=== PATIENT | female | born 1990 | race Caucasian/White ===

== ENCOUNTER 2024-12-01 12:50 | Emergency (ER) | payer OTHER, SELFPAY ==
[2024-12-01 12:58] VITALS: BP 132/74; PULSE 62; RESP 16; TEMP 36.8; O2SAT 97; BMI 25.8
[2024-12-01 13:02] VITALS: BP 132/74; PULSE 62; RESP 16; TEMP 36.8; O2SAT 97
--- NOTE | 2024-12-01 13:23 | ED.GENADULT ---
HPI - General Adult General Chief complaint: General Medical Stated complaint: PICC LINE ISSUES Time Seen by Provider: 12/01/24 13:07 Source: patient, EMS, RN notes reviewed, old records reviewed and other ([facility] records) Mode of arrival: EMS Limitations: no limitations History of Present Illness ED Provider: Awilda HPI narrative: Patient is a 34-year-old female with history of polysubstance use disorder (heroin, cocaine, tobacco, marijuana), chronic hepatitis C, chronic TV endocarditis, TBI, depression, panic disorder without agoraphobia presenting to the emergency department via EMS from the court house requesting that her PICC line be removed from her left upper arm. PICC line was placed at [facility] on 11/27/2024 as it was believed patient would be incarcerated for a longer period and was to receive IV daptomycin via the PICC line for bacteremia and suspected endocarditis. Patient stating that she was released at court hearing today and was told it [facility] that she could take oral antibiotics if she was not going to continue to be incarcerated. She is demanding that the PICC line be removed and is not interested in continuing with IV antibiotics. She also states that prior to her incarceration she was actively injecting IV drugs. complaint: PICC line removal Related Data Previous Rx's ?Medication ?Instructions ?Recorded cephalexin 500 mg capsule 1,000 mg (2 x 500 mg) PO QID 34 12/01/24 days #272 caps Allergies Allergy/AdvReac Type Severity Reaction Status Date / Time No Known Allergies (No Known Allergy Verified 12/01/24 13:02 Allergies*) Review of Systems Review of Systems: as per HPI Yes all other systems are reviewed and are negative Constitutional: Constitutional: Reports as per HPI [facility] Social History Social History Smoked in Last 30 Days: Yes Advance Directives: No Advance Directives Information Provided: No Do you have a plan to hurt others: No Plan Patient : No Physical Exam ED Vital Signs: Vital Signs - 24 hr 12/01/24 12:58 12/01/24 13:02 12/01/24 13:25 Temperature 98.2 F 98.2 F 98.2 F Pulse Rate 62 62 62 Respiratory Rate 16 16 16 Blood Pressure 132/74 132/74 132/74 Pulse Oximetry 97 97 97 Oxygen Delivery Method Room Air Room Air Room Air BMI result Body Mass Index 25.8 Vital signs have been reviewed and appear to be correct. Blood pressure normal. Heart rate normal. Respiratory rate normal. Temperature normal. Oxygen saturation normal. Const General: cooperative, healthy appearing and no acute distress Orientation/consciousness: oriented to person, oriented to place, oriented to time and patient oriented x3 Limitations: no limitations HENMT Head: Yes normocephalic and Yes atraumatic Ears: external ears normal General nose exam: Normal external nose present Face and sinus: Yes face symmetric Mouth: oropharynx normal and moist mucous membranes Throat: Yes uvula midline Eyes Pupils: Equal, round and reactive pupils present Neck Neck: Yes normal visual inspection and Yes supple Resp Effort & Inspection: normal respiratory effort and able to speak in complete sentences Auscultation: clear to auscultation bilaterally Cardio Rate: regular rate Rhythm: regular rhythm Heart sounds: S1 normal heart sound present and S2 normal heart sound present GI Palpation (GI): Soft to palpation and nontender Auscultation: normoactive bowel sounds General: Yes no CVA tenderness Back/Spine/Pelvis Back: no CVA tenderness Skin General skin exam: elasticity normal and turgor normal Neuro General: oriented to person, oriented to place, oriented to time, patient oriented x3, moves all extremities, no focal motor deficits and CN's II-XI intact bilaterally Cranial nerves: Yes Equal, round and reactive pupils present Cognition (Neuro): normal cognition Extrem Other: Diffuse healed scars to bilateral upper extremities, PICC line to medial left upper arm General: Yes full ROM, Yes no pedal edema and Yes no calf tenderness Psych Mental Status: mental status grossly normal Affect: normal affect Thought process: Normal thought process present Course Course Course Narrative: patient seen with [facility] - discussed risks and that taking PICC out and switching to oral at this time likely to cause issue. Mom present patient refuses to keep it in. JORDAN Medications Administered Discontinued Medications Generic Name Dose Route Start Last Admin Trade Name Freq PRN Reason Stop Dose Admin Bacitracin 1 appl 12/01/24 13:18 12/01/24 13:23 Bacitracin Oint 0.9 Gm Packet TOPICAL 12/01/24 13:19 1 appl ONCE ONE Administration Protocol Medical Decision Making Medical Decision Making MDM Narrative: Patient is a 34-year-old female with history of polysubstance use disorder (heroin, cocaine, tobacco, marijuana), chronic hepatitis C, chronic TV endocarditis, TBI, depression, panic disorder without agoraphobia presenting to the emergency department via EMS from the court house requesting that her PICC line be removed from her left upper arm. On exam patient is awake, A+Ox3, VS WNL, afebrile, normal neurological exam without focal deficits, physical exam findings as above. Given reported symptoms and physical exam findings, initial differential includes but is not limited to PICC line removal. Upon review of EMR from [facility], PICC line was placed on 11/27 as it was believed patient would be incarcerated and able to receive IV daptomycin for bacteremia and suspected endocarditis. Patient was released at court hearing today and is requesting that PICC line be removed. States she was told that [facility] that she could take oral antibiotics. Discharge note from Dr. Karol Hunt notes that if patient is released, she can have the PICC line removed and be treated with cephalexin 1 g q.i.d. times 4-6 weeks. Risks of removing PICC line and progressive worsening discussed with patient at bedside including chest pain, dyspnea, lower extremity edema, fever and patient advised to present to any area emergency department if these symptoms occur. Attempted to discuss with the patient that other options for IV treatment could be arranged, patient states she is not willing to participate in this and wants her PICC line removed. PICC line removed in the ED and dressing applied without complication. Prescription for cephalexin sent to the pharmacy. Patient seen and evaluated with attending, Dr. Osorio. Patient verbalized understanding of and agreement with plan. Differential Diagnosis Differential Diagnoses: The differential diagnosis associated with the presentation includes As per [facility] Admission/Observation Consideration of admission/observation: Escalation of care including admission/observation considered Patient would have been admitted to the hospital had their clinical presentation warranted hospital admission. External Record Review External record reviewed: Inpatient record, Office record and Outpatient record Prescription Management I considered prescription management with: Antibiotic Discharge Plan Discharge Clinical Impression: MSSA bacteremia, Endocarditis Patient Disposition: Home, Self-Care Instructions: Bacteremia (ED) Additional Instructions: it is not recommended you remove your PICC line given you just were diagnosed and need longer term IV antibiotics we offered to help you continue your infusions you refused you are putting yourself at risk of worsening infection, sepsis, infective clots to your lungs, brain, kidney. You could damage your valve worse and end up with congestive heart failure or a need for valve surgery. you can return at any time, please call your doctor at [facility] as soon as possible. On a cephalosporin?antibiotic, softer bowel movements are to be expected. Call your provider if you move your bowels more than 4 times a day, your bowel movements are almost all liquid, or you get a rash.?? Prescriptions: New cephalexin 500 mg capsule 1,000 mg PO QID 34 Days Qty: 272 0RF Interventions: ED Discharge Assessment Last Done: 12/01/24 13:25 Discharge Date/Time: 12/01/24 13:48 Print Language: Congolese
--- NOTE | 2024-12-01 13:24 | PC.NURSE ---
Assisting nurse removed picc line from left arm. End of picc line intact. Pressure applied until bleeding ceased. Dressing placed over area. Patient up for discharge
[2024-12-01 13:25] VITALS: BP 132/74; PULSE 62; RESP 16; TEMP 36.8; O2SAT 97
--- OUTSIDE RECORDS SUMMARY | 2024-12-01 13:41 | XMS_ITS | Clinical Summary ---
Author Organization [employer] Address [address] [place] [address] [address] [place] [address] Care Team Providers Care Vibrator Equipment Tester Name Role Phone Unavailable Primary Care Provider Unavailabl e Immunizations Immunization Administration Dates Next Due Moderna Covid-19 Vaccine 6+ Bivalent 04/15/2022 Social History Tobacco Use Types Packs/Day Years Used Date Smoking Tobacco: Never Assessed Comments Unknown Sex and Gender Information Value Date Recorded Sex Assigned at Female 02/23/2022 10:35 AM EDT Legal Sex Female 10:35 AM EDT Gender Identity Female 02/23/2022 10:35 AM EDT Sexual Orientation Straight 02/23/2022 10 :35 AM EDT Plan of Treatment Health Maintenance Due Date Last Done Comments Depression Screening 1990 HIV Screening 1990 SDOH Screening 1990 Disability Screening 1990 Alcohol/Substance Use Screening 2002 Tobacco Screening 2002 Family Planning (PISQ) 2005 HPV Vaccines (1 - 3-dose series) 2005 Hepatitis A Vaccines (1 of 2 - Risk 2-dose series) 2009 Hepatitis B Vaccines (1 of 3 - 19+ 3-dose series) 2009 Pap Smear 2011 Cervical Cancer Screening 2020 HPV/Cotest 2020 COVID-19 Vaccine (3 - 2023-2 5 season) 2023 04/15/2022, 10/02/2020 Influenza Vaccine (#1) 2024 05/10/2010 DTaP/Tdap/Td Vaccines (2 - T d or Tdap) 10/20/2025 10/21/2015 Zoster Vaccines (1 of 2) 2040 RSV Patients and Patients Aged 60 years or older (1 - 1-dose 75+ series) 2065 HIB Vaccines Aged Out No longer eligi ble based on patient's age to complete this topic IPV Vaccines Aged Out No longer eligi ble based on patient's age to complete this topic Meningococcal B Vaccine Aged Out No l onger eligible based on patient's age to complete this topic Meningococcal Vaccine Aged Out No chidi evelio eligible based on patient's age to complete this topic Pneumococcal Vaccine: Pediatrics (0 to 5 Years) and At-Risk Patients (6 to 49) Years Aged Out No longer eligible b ased on patient's age to complete this topic RSV under 20 months Aged Out No longe r eligible based on patient's age to complete this topic Rotavirus Vaccines Aged Out No longer eligible based on patient's age to complete this topic Insurance [facility] STANDARD MEDICARE
--- OUTSIDE RECORDS SUMMARY | 2024-12-01 13:41 | XMS_ITS | Clinical Summary ---
Author Organization [facility] Facility Address [address] [place] [address] Care Team Providers Care Rn Occupational Name Role Phone Unavailable Primary Care Provider Unavailabl e Social History Tobacco Use Types Packs/Day Years Used Date Smoking Tobacco: Never Assessed Comments Unknown Sex and Gender Information Value Date Recorded Sex Assigned at Not on file Legal Sex Female 9:54 AM EDT Gender Identity Not on file Sexual Orientation Not on file Plan of Treatment Health Maintenance Due Date Last Done Comments Hepatitis B Vaccine (1 of 3 - 19+ 3-dose series) 2009 Influenza Vaccine (#1) 2024 Pneumococcal Vaccine: Peds ( 0 to 5 Years) and At-Risk Patients (6 to 49 Years) Aged Out No longer eligible b ased on patient's age to complete this topic Insurance [place]
--- OUTSIDE RECORDS SUMMARY | 2024-12-01 13:42 | XMS_ITS | Clinical Summary ---
Author Organization [facility] Address [address] [place] [address] Phone Care Team Providers Care Textiles Printer Name Role Phone Physician, Pcp Unknown Primary Care Provider Erin vailable Allergies No known active allergies Medications OLANZapine (ZyPREXA) 5 mg tablet Take 1 tablet (5 mg total) by mouth. at bedtime 5 Active topiramate (TOPAMAX) 50 mg tablet Take 1 tablet (50 mg total) by mouth. at bedtime 5 Active nicotine (NICODERM CQ) 21 mg/24 hr 4 Active amoxicillin (AMOXIL) 500 mg tablet TAKE 1 TABLET BY MOUTH EVERY 8 HOURS UNTIL ALL TAKEN 5 Active buprenorphine-n aloxone (SUBOXONE) 8-2 mg per SL film PLACE FILM UNDER TONGUE THREE TIMES DAILY 5 Active busPIRone (BUSPAR) 10 mg tablet Take 1 tablet (10 mg total) by mouth 3 (three) times a day if needed. 4 Active chlorhexidine (PERIDEX) 0.12 % solution SWISH 15 ML BY MOUTH FOR 30 SECONDS THEN SPIT OUT. USE AFTER BREAKFAST AND BEFORE BEDTIME 5 Active cloNIDine (CATAPRES) 0.1 mg tablet Take 1 tablet (0.1 mg total) by mouth 3 (three) times a day if needed. 4 Active gabapentin (NEURONTIN) 300 mg capsule Take 1 capsule (300 mg total) by mouth. 2 Active methadone (DOLOPHINE) 10 mg tablet Take 11 tablets (110 mg total) by mouth. 2 Active methocarbamoL (ROBAXIN) 750 mg tablet Take 1 tablet (750 mg total) by mouth. Active doxycycline (VIBRAMYCIN) 100 mg capsule Take 1 capsule (100 mg total) by mouth 2 (two) times a day for 7 days. Take with at least 8 ounces (large glass) of water, do not lie down for 30 minutes after 14 each 5 11/12/19 25 Active Problems Problem Noted Date Diagnosed Date Open wound of right upper extremity 01/06/2019 Status post split thickness skin graft 9 Encounters Date Type Department Care Team Description 11/04/2024 3:40 AM EDT - 11/04/2024 7:17 AM EDT Emergency [facility] Emergency [address] [place] [address] Casey Joe MD Cellulitis of upper extremity, unspecified laterality (Primary Dx) Discharge Disposition: Home or Self Care from Last 3 Months Surgical History Surgery Date Site/Laterality Comments OTHER SURGICAL HISTORY PROCEDURE: SKIN GRAFT <100SQCM; COMMENT: 2019 Medical History Medical History Date Comments Drug abuse ([facility] V24, [facility] V28) 2021 Family History Relation Name Status Comments Father Alive Mother Alive Social History Tobacco Use Types Packs/Day Years Used Date Smoking Tobacco: Every Day Smokeless Tobacco: Current Alcohol Use Standard Drinks/Week Comments No 0 (1 standard drink = 0.6 oz pur e alcohol) Comments Unknown Sex and Gender Information Value Date Recorded Sex Assigned at Not on file Legal Sex Female 4:05 AM EST Gender Identity Not on file Sexual Orientation Not on file Obstetrics History Last Filed Vital Signs Vital Sign Reading Time Taken Comments Blood Pressure 105/66 11/04/2024 3:01 AM EDT Pulse 72 11/04/2024 3:01 AM EDT Temperature 36.7 C (98 F) 11/04/2024 3:01 AM EDT Respiratory Rate 16 11/04/2024 3:01 AM EDT Oxygen Saturation 99% 11/04/2024 3:01 AM EDT Inhaled Oxygen Concentration - - Weight 72.6 kg (160 lb) 11/03/2024 9:33 PM EDT Height 160 cm (5' 3 ) 11/03/2024 9:33 PM EDT Body Mass Index 28.34 11/03/2024 9:33 PM EDT Plan of Treatment Health Maintenance Due Date Last Done Comments Hepatitis A Vaccines (1 of 2 - Risk 2-dose series) 2009 Hepatitis B Vaccines (1 of 3 - 19+ 3-dose series) 2009 Pneumococcal Vaccine: Pediatrics (0 to 5 Years) and At-Risk Patients (6 to 49 Years) (1 of 2 - PCV) 2009 Cervical Cancer Screening: P ap Smear 2011 Cholesterol Screening (Lipid Panel) 03/29/2022 HIV Screening 03/29/2022 Hepatitis C Screening 03/29/2022 Medicare Annual Wellness Visit 03/29/2022 Social Influencers of Health Screening 03/29/2022 COVID-19 Vaccine (3 - 2023-2 5 season) 2023 04/15/2022, 10/02/2020 Depression Screening 04/26/2024 Influenza Vaccine (#1) 2024 05/10/2010 DTaP,Tdap,and Td Vaccines (3 - Td or Tdap) 01/09/2029 01/09/2019, 10/21/2015 HIB Vaccines Aged Out No longer eligi ble based on patient's age to complete this topic HPV Vaccines Aged Out No longer eligi ble based on patient's age to complete this topic IPV Vaccines Aged Out No longer eligi ble based on patient's age to complete this topic MMR Vaccines Aged Out No longer eligi ble based on patient's age to complete this topic Meningococcal ACWY Vaccine Aged Out N o longer eligible based on patient's age to complete this topic Meningococcal B Vaccine Aged Out No l onger eligible based on patient's age to complete this topic RSV Immunization Patients Under 20 months Aged Out No longer eligible b ased on patient's age to complete this topic Varicella Vaccines Aged Out No longer eligible based on patient's age to complete this topic Procedures Procedure Name Priority Date/Time Associated Diagnosis Comments CBC WITH AUTO DIFFERENTIAL STAT 11/04/2024 5:13 AM EDT MAGNESIUM STAT 11/04/2024 5:13 AM EDT LACTATE, WITH REFLEX STAT 11/04/2024 5:13 AM EDT COMPREHENSIVE METABOLIC PANEL STAT 11/04/2024 5:13 AM EDT CBC AND DIFFERENTIAL STAT 11/04/2024 5:13 AM EDT CULTURE BLOOD STAT 11/04/2024 5:13 AM EDT from Last 3 Months Results * Lactate, with reflex (11/04/2024 5:13 AM EDT) [facility] LACTIC ACID 0.9 0.4 - 2.0 mmol/L LAB CHEMISTRY METHOD 11/04/2024 5:52 AM EDT [facility] Blood Venous blood specimen / Unknown Venipuncture / Unknown 11/04/2024 5:13 AM EDT 11/04/2024 5:18 AM EDT Russ Weiss MD LAB BLOOD ORDERABLES Final Result [facility] [address] [place] [address], * (ABNORMAL) CBC auto differential (11/04/2024 5:13 AM EDT) [facility] WBC 10.6 4.8 - 10.8 K/mcL LAB HEMETOLOGY METHOD 11/04/2024 5:23 AM EDT [facility] RBC 4.90(H) 3.80 - 4.80 M/mcL LAB HEMETOLOGY METHOD 11/04/2024 5:23 AM EDT [facility] Hemoglobin 14.6 11.5 - 16.0 g/dL LAB HEMETOLOGY METHOD 11/04/2024 5:23 AM EDT [facility] Hematocrit 45.1 35.0 - 47.0 % LAB HEMETOLOGY METHOD 11/04/2024 5:23 AM EDT [facility] MCV 92.0 79.0 - 98.0 FL LAB HEMETOLOGY METHOD 11/04/2024 5:23 AM T [facility] MCH 29.8 27.0 - 32.0 pcg LAB HEMETOLOGY METHOD 11/04/2024 5:23 AM [facility] MCHC 32.4 32.0 - 37.0 g/dL LAB HEMETOLOGY METHOD 11/04/2024 5:23 AM [facility] RDW 12.4 11.0 - 15.0 % LAB HEMETOLOGY METHOD 11/04/2024 5:23 AM [facility] Platelets 279 130 - 400 K/mcL LAB HEMETOLOGY METHOD 11/04/2024 5:23 AM [facility] MPV 8.9 7.0 - 11.0 FL LAB HEMETOLOGY METHOD 11/04/2024 5:23 AM [facility] NRBC 0.0 <1.0 % LAB HEMETOLOGY METHOD 11/04/2024 5:23 AM [facility] NRBC Absolute 0.00 <0.10 K/mcL LAB HEMETOLOGY METHOD 11/04/2024 5:23 AM [facility] Neutrophils Relative 61.2 % LAB HEMETOLOGY METHOD 11/04/2024 5:23 AM [facility] Lymphocytes Relative 30.7 % LAB HEMETOLOGY METHOD 11/04/2024 5:23 AM [facility] Monocytes Relative 5.8 % LAB HEMETOLOGY METHOD 11/04/2024 5:23 AM [facility] Eosinophils Relative 1.2 % LAB HEMETOLOGY METHOD 11/04/2024 5:23 AM [facility] Basophils Relative 0.6 % LAB HEMETOLOGY METHOD 11/04/2024 5:23 AM [facility] Immature Granulocytes Relative 0.5 % LAB HEMETOLOGY METHOD 11/04/2024 5:23 AM EDT [facility] Neutrophils Absolute 6.48 1.50 - 7.00 K/[facility] LAB HEMETOLOGY METHOD 11/04/2024 5:23 AM EDT [facility] Lymphocytes Absolute 3.25 1.00 - 5.00 K/[facility] LAB HEMETOLOGY METHOD 11/04/2024 5:23 AM EDT [facility] Monocytes Absolute 0.61 0.20 - 1.00 K/[facility] LAB HEMETOLOGY METHOD 11/04/2024 5:23 AM EDT [facility] Eosinophils Absolute 0.13 0.00 - 0.50 K/[facility] LAB HEMETOLOGY METHOD 11/04/2024 5:23 AM EDT [facility] Basophils Absolute 0.06 0.00 - 0.20 K/mcL LAB HEMETOLOGY METHOD 11/04/2024 5:23 AM EDT [facility] Immature Granulocytes Absolute 0.05(H) 0.00 - 0.03 K/mcL LAB HEMETOLOGY METHOD 11/04/2024 5:23 AM EDT [facility] Blood Venous blood specimen / Unknown Venipuncture / Unknown 11/04/2024 5:13 AM EDT 11/04/2024 5:19 AM EDT us Russ Weiss MD LAB BLOOD ORDERABLES Final Result [facility] [address] [place] [address], * Blood culture (11/04/2024 5:13 AM EDT) Culture, Blood No growth at 5 days 11/09/2024 6:01 AM EDT [facility] Blood Venous blood specimen / Unknown Venipuncture / Unknown 11/04/2024 5:13 AM EDT 11/04/2024 5:19 AM EDT Russ Weiss MD LAB MICROBIOLOGY - GENERAL ORDERABLES Final Result Performing Organization Address [facility]/ZIP Co de Phone Number [facility] [address] [place] [address], [place] [phone] * Magnesium (11/04/2024 5:13 AM EDT) Pathologist [facility] Magnesium 2.2 1.9 - 2.6 mg/dL LAB CHEMISTRY METHOD 11/04/2024 6:01 AM EDT [facility] Blood Venous blood specimen / Unknown Venipuncture / Unknown 11/04/2024 5:13 AM EDT 11/04/2024 5:19 AM EDT Russ Weiss MD LAB BLOOD ORDERABLES Final Result Performing Organization Address [facility]/ZIP Co de Phone Number [facility] [address] [place] [address], [place] [phone] * (ABNORMAL) Comprehensive metabolic panel (11/04/2024 5:13 AM EDT) [facility] Sodium 138 133 - 145 mmol/L LAB CHEMISTRY METHOD 11/04/2024 6:01 AM T [facility] Potassium 4.2 3.5 - 5.5 mmol/L LAB CHEMISTRY METHOD 11/04/2024 6:01 AM EDT [facility] Chloride 101 96 - 110 mmol/L LAB CHEMISTRY METHOD 11/04/2024 6:01 AM EDT [facility] CO2 31 21 - 32 mmol/L LAB CHEMISTRY METHOD 11/04/2024 6:01 AM EDT [facility] Anion Gap 6 3 - 11 LAB CHEMISTRY METHOD 11/04/2024 6:01 AM EDT [facility] Glucose 99 70 - 100 mg/dL LAB CHEMISTRY METHOD 11/04/2024 6:01 AM [facility] BUN 15 5 - 25 mg/dL LAB CHEMISTRY METHOD 11/04/2024 6:01 AM [facility] Creatinine 0.53 0.50 - 1.10 mg/dL LAB CHEMISTRY METHOD 11/04/2024 6:01 AM [facility] eGFR 125 >=60 mL/min/1. 73m2 LAB CHEMISTRY METHOD 11/04/2024 6:01 AM [facility] Comment:Calculation based on the Chronic Kidney Disease Epidemiology Collaboration (CKD-EPI) equation refit without adjustment for race. BUN/Creatinine Ratio 28.3 LAB CHEMISTRY METHOD 11/04/2024 6:01 AM [facility] Calcium 9.3 8.5 - 10.5 mg/dL LAB CHEMISTRY METHOD 11/04/2024 6:01 AM [facility] AST (SGOT) 56(H) 10 - 42 unit/L LAB CHEMISTRY METHOD 11/04/2024 6:01 AM [facility] ALT (SGPT) 93(H) 10 - 60 unit/L LAB CHEMISTRY METHOD 11/04/2024 6:01 AM [facility] Alkaline Phosphatase 188(H) 42 - 121 unit/L LAB CHEMISTRY METHOD 11/04/2024 6:01 AM [facility] Total Protein 8.0 6.0 - 8.0 g/dL LAB CHEMISTRY METHOD 11/04/2024 6:01 AM [facility] Albumin 3.4 3.2 - 5.0 g/dL LAB CHEMISTRY METHOD 11/04/2024 6:01 AM [facility] Total Bilirubin 0.4 0.0 - 1.4 mg/dL LAB CHEMISTRY METHOD 11/04/2024 6:01 AM [facility] Blood Venous blood specimen / Unknown Venipuncture / Unknown 11/04/2024 5:13 AM EDT 11/04/2024 5:19 AM EDT us Russ Weiss MD LAB BLOOD ORDERABLES Final Result [facility] [address] [place] [address], [place] [phone] from Last 3 Months Insurance MEDICARE MEDICAID - [place] [facility] PL[facility] Advance Directives Documents on File Type Date Recorded Patient Building Contractor Expl anation Health Care Decision (hx) 09/24/2021 AD GROSS DIRECTIVE Health Care Decision (hx) 09/24/2021 AD GROSS DIRECTIVE Health Care Decision (hx) 09/24/2021 AD GROSS DIRECTIVE Care Teams Textiles Printer Relationship Specialty Start Date End Date Physician, Pcp Unknown PCP - General 11/04/24
== END 2024-12-01 13:48 | disposition home or self-care (01) ==
LOC: HO.ED 13:37
PROVIDERS: Emergency Provider Emergency Medicine Emergency Medical Services; PCP Internal Medicine
DX: R78.81 Bacteremia (principal); A49.01 Methicillin susceptible Staphylococcus aureus infection, unspecified site; I38 Endocarditis, valve unspecified; Z45.2 Encounter for adjustment and management of vascular access device
CPT/HCPCS: 99283; 99284

== ENCOUNTER 2024-12-09 17:20 | Emergency (ER) | payer OTHER, SELFPAY ==
[2024-12-09 17:31] VITALS: BP 148/94; BP 154/77; PULSE 106; RESP 17; TEMP 36.8; O2SAT 99; BMI 28.0
--- NOTE | 2024-12-09 18:52 | ED_ITS ---
HPI - Overdose General Chief Complaint: Overdose Stated Complaint: OD, used heroine x30 mins, Narcan given Time Seen by Provider: 12/09/24 17:34 Source: patient, EMS and RN notes reviewed Mode of arrival: EMS Limitations: no limitations History of Present Illness ED Provider: Aki Sepulveda PA-C HPI Narrative: 34-year-old female with medical history of polysubstance use disorder (heroin, cocaine, tobacco, marijuana), chronic hepatitis C, chronic TV endocarditis, TBI, depression, panic disorder without agoraphobia presents to the ED by EMS after heroin overdose. Patient is homeless, was in the streets today when she had an accidental overdose on heroin. Patient states she had a friend with her who administered 6 mg of Narcan intranasally and became responsive. Patient states she typically uses 3-4 bags per day intravenously. Patient reports no HI/SI, does not want resources or detox services at this time. Patient states she has no physical complaints and just wants to ?get out of here?. Related Data Previous Rx's ?Medication ?Instructions ?Recorded cephalexin 500 mg capsule 1,000 mg (2 x 500 mg) PO QID 34 12/01/24 days #272 caps Allergies Allergy/AdvReac Type Severity Reaction Status Date / Time No Known Allergies (No Known Allergy Verified 12/09/24 17:34 Allergies*) Review of Systems Review of Systems: CONST: Negative for fever, body aches and chills. HENT: Negative for neck pain/stiffness, headache, congestion, sore throat, swelling. EYES: Negative for discharge/pain or vision changes. RESP: Negative for cough/hemoptysis and shortness of breath. CV: Negative chest pain, difficulty breathing, palpitations. ABD: Negative pain, nausea, vomiting. : Negative increase frequency, dysuria, blood in urine or stool. MUSC: Negative for muscle aches, edema. SKIN: Negative rash, lesions/sores. NEURO: Negative headache, dizziness, weakness. [facility] Past Medical History Attestation statement: The following information was validated with the patient. Source: old records reviewed and nursing notes reviewed Social History Social History Advance Directives: No Advance Directives Information Provided: No Do you have a plan to hurt others: No Plan Physical Exam Vital Signs: Vital Signs: Last Vital Signs Temp 98.2 F 12/09/24 17:31 Pulse 106 H 12/09/24 17:31 Resp 17 12/09/24 17:31 BP 154/77 H 12/09/24 17:31 Pulse Ox 99 12/09/24 17:31 O2 Del Method Room Air 12/09/24 17:31 BMI result Body Mass Index 28.0 GENERAL APPEARANCE: ?AxOx4, no acute distress. HEENT: ?NC, AT. MMM. EOMI, clear conjunctiva, oropharynx clear. NECK: ?Supple without lymphadenopathy.? No stiffness or restricted ROM. HEART:? Normal rate and regular rhythm, normal S1/S2, no m/r/g LUNGS:? CTAB, moving air well. No crackles or wheezes are heard. No decreased respiratory rate, no hypoxia, no increased work of breathing, EXTREMITIES: ?Without cyanosis, clubbing or edema. NEUROLOGICAL: ?Grossly nonfocal. Alert and oriented, moving all 4 extremities. Observed to ambulate with normal gait. Skin: ?Warm and dry without any rash. Medical Decision Making Medical Decision Making MDM Narrative: 34-year-old female with medical history of polysubstance use disorder (heroin, cocaine, tobacco, marijuana), chronic hepatitis C, chronic TV endocarditis, TBI, depression, panic disorder without agoraphobia presents to the ED by EMS after heroin overdose. Patient is homeless, was in the streets today when she had an accidental overdose on heroin. Patient states she had a friend with her who administered 6 mg of Narcan intranasally and became responsive. Patient states she typically uses 3-4 bags per day intravenously. Patient reports no HI/SI, does not want resources or detox services at this time. Patient states she has no physical complaints and just wants to ?get out of here?. VS-BP of 132/73, pulse rate of 94, respiratory rate of 20, afebrile with oral temp of 97.9?, O2 saturation 98% on room air. Physical exam reveals alert and oriented patient, without somnolence, clear lung sounds bilaterally, no wheezing, crackles, rhonchi, no hypoxia, cardiac exam with normal rate and rhythm, no murmurs/rubs/gallops, no lower extremity edema, extremities well- perfused. No SI/HI, overdose was accidental. Patient declining resources or care team eval for detox at this time. Patient without physical complaints. Patient has spent approximately 2-1/2 hours in the department being observed, and has been alert and oriented the entire time, patient ambulating without ataxic gait. Patient discharged with opiate use instructions, overdose extractions, take home Narcan. Differential Diagnosis Differential Diagnoses: The differential diagnosis associated with the presentation includes Opiate overdose Opiate withdrawal Admission/Observation Consideration of admission/observation: Escalation of care including admission/observation considered External Record Review External record reviewed: Inpatient record, Office record and Outpatient record Chronic Conditions Patient?s care impacted by: Other (Polysubstance use disorder) Discharge Plan Discharge Clinical Impression: Drug overdose Patient Disposition: Home, Self-Care Instructions: Adult Overdose (ED) Additional Instructions: Opiate use disorder You were seen in our Emergency Department today for treatment of opiate use disorder. You may have been dosed with medication for opiate use disorder (MOUD) in the form of suboxone or methadone. You may experience feeling some withdrawal symptoms and this is normal. The? dose in the Emergency Department is a starting dose and meant to be titrated up once you follow up with a clinic. Please do not feel discouraged, it is a process. The nurse has reviewed with you where to follow up and what information to bring with you, to continue treatment. You also may have been given naloxone (narcan) to take home with you. This medication is used to potentially treat opiate overdose. If you decide you want to stop or cut down on how much you?re using, you can call or walk into our outpatient Addiction Treatment office: [facility] (M-F 9am-5p) [address] [place] [address], [address] [phone] You may have been provided with safer injection?items, please take time to take care of YOU and your health. Use new supplies whenever possible to lessen the chances of infections and other illnesses.? ?If you need more supplies, please go [facility],? [address], [place] you can call or text to coordinate delivery of safer supplies. You were also provided a list of several treatment providers in the area.? If you experience any worsening symptoms you cannot control please return to the ED or call 911. Please follow up at your next appointment. Things to look out for are fevers, chest pain, shortness of breath, severe pain, dizziness, fainting or any other concerns. Overdose You were seen in our Emergency Department for an overdose today. You received narcan in order to reverse the effects of overdose. Narcan only lasts about 45 min to 1 hour in the system. You may have been given narcan to take home with you today, please keep it near you if you are going to use again, so others can use it if needed.? The number one risk for fatal overdose is using alone? [employer] is a 24/7 hotline where you can be on the phone with someone while you use, and they can call for help if they suspect an overdose: [phone] Things to look out for when you leave include severe vomiting or diarrhea, headaches, muscle cramps, fever, coughing, chest pain, or if you feel so short of breath you cannot walk to the bathroom. Please seek care and return any time for worsening symptoms.? You may have been provided with safer injection?items, please take time to take care of YOU and your health. Use new supplies whenever possible to lessen the chances of infections and other illnesses.? If you need more supplies, please go [facility],? [address] [place] [address] [place] you can call or text to coordinate delivery of safer supplies. If you decide you want to stop or cut down on how much you?re using, please call the numbers on the list provided to you or you can come to our outpatient Addiction Treatment office [facility] (M-F 9am-5p) [address] [place] [address], [facility] [address], [place]. [phone] Prescriptions: No Action cephalexin 500 mg capsule 1,000 mg PO QID 34 Days Qty: 272 0RF Print Language: Welsh
[2024-12-09 18:58] VITALS: BP 132/73; PULSE 94; RESP 20; TEMP 36.6; O2SAT 98
--- NOTE | 2024-12-09 19:10 | PC.NURSE ---
Patient left ED didnt want discharge paperwork or take home narcan
== END 2024-12-09 19:10 | disposition home or self-care (01) ==
PROVIDERS: Emergency Provider Emergency Medicine
DX: T40.1X1A Poisoning by heroin, accidental (unintentional), initial encounter (principal); Y92.9 Unspecified place or not applicable; F14.90 Cocaine use, unspecified, uncomplicated; F12.90 Cannabis use, unspecified, uncomplicated; Z72.0 Tobacco use; B18.2 Chronic viral hepatitis C; I07.9 Rheumatic tricuspid valve disease, unspecified; F32.A Depression, unspecified; F41.0 Panic disorder [episodic paroxysmal anxiety]; Z59.02 Unsheltered homelessness
CPT/HCPCS: 99283

== ENCOUNTER 2024-12-31 11:43 | Emergency (ER) | payer OTHER, SELFPAY ==
--- NOTE | ~2024-12-31 | XR_ITS ---
CLINICAL HISTORY: sepsis Two views of the chest. COMPARISON: None provided. FINDINGS: Normal heart and mediastinal contours. No consolidation. No pleural effusion or pneumothorax. No acute fracture. IMPRESSION: 1. No consolidation. This document has been electronically signed by: Patrick Reynolds MD on 12/31/2024 15:42:30
[2024-12-31 11:52] VITALS: BP 126/85; PULSE 113; RESP 20; TEMP 36.8; O2SAT 97; BMI 26.4
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
--- OUTSIDE RECORDS SUMMARY | 2024-12-31 12:28 | XMS_ITS | Clinical Summary ---
Author Organization 175 [facility] Address [address] [place] [address] Phone Care Team Providers Care Feeder Operator Name Role Phone Physician, Pcp Unknown Primary [...] 1 tablet (750 mg total) by mouth. 2 Active Active Problems Problem Noted Date Diagnosed Date Open wound of right upper extremity 01/06/2019 Status post split thickness skin graft 9 Encounters Date Type Department Care Team Description 11/04/2024 3:40 AM EDT - 11/04/2024 7:17 AM EDT Emergency [facility] Emergency [address] [place] [address] Casey Joe MD Cellulitis of upper extremity, unspecified laterality (Primary Dx) Discharge Disposition: Home or Self Care from Last 3 Months Surgical History Surgery Date Site/Laterality Comments OTHER SURGICAL HISTORY PROCEDURE: SKIN GRAFT <100SQCM; COMMENT: 2019 Medical History Medical History Date Comments Drug abuse ([facility] V24, [facility] V28) 2021 Family History Relation Name Status [...] 03/29/2022 Social Influencers of Health Screening 03/29/2022 Depression Screening 04/26/2024 COVID-19 Vaccine (3 - 2024-2 6 season) 2024 04/15/2022, 10/02/2020 Influenza Vaccine (#1) 2024 05/10/2010 DTaP,Tdap,and Td [...] Lactate, with reflex (11/04/2024 5:13 AM EDT) LACTIC ACID 0.9 0.4 - 2.0 mmol/L LAB CHEMISTRY METHOD 11/04/2024 5:52 AM EDT [facility] Blood Venous blood specimen / Unknown Venipuncture / Unknown 11/04/2024 5:13 AM EDT 11/04/2024 5:18 AM EDT us Russ Weiss MD LAB BLOOD ORDERABLES Final Result [facility] [address] [place] [address], * (ABNORMAL) CBC auto differential (11/04/2024 5:13 AM EDT) Pathologist [facility] WBC 10.6 4.8 - 10.8 K/mcL LAB HEMETOLOGY METHOD 11/04/2024 5:23 AM EDT [facility] RBC 4.90(H) 3.80 - 4.80 M/mcL LAB HEMETOLOGY METHOD 11/04/2024 5:23 AM EDT [facility] Hemoglobin 14.6 11.5 - 16.0 g/dL LAB HEMETOLOGY METHOD 11/04/2024 5:23 AM EDT [facility] Hematocrit 45.1 35.0 - 47.0 % LAB HEMETOLOGY METHOD 11/04/2024 5:23 AM EDT [facility] MCV 92.0 79.0 - 98.0 FL LAB HEMETOLOGY METHOD 11/04/2024 5:23 AM EDT [facility] MCH 29.8 27.0 - 32.0 pcg LAB HEMETOLOGY METHOD 11/04/2024 5:23 AM [facility] MCHC 32.4 32.0 - 37.0 g/dL LAB HEMETOLOGY METHOD 11/04/2024 5:23 AM [facility] RDW 12.4 11.0 - 15.0 % LAB HEMETOLOGY METHOD 11/04/2024 5:23 AM [facility] Platelets 279 130 - 400 K/mcL LAB HEMETOLOGY METHOD 11/04/2024 5:23 AM [facility] MPV 8.9 7.0 - 11.0 FL LAB HEMETOLOGY METHOD 11/04/2024 5:23 AM [facility] NRBC 0.0 <1.0 % LAB HEMETOLOGY METHOD 11/04/2024 5:23 AM [facility] NRBC Absolute 0.00 <0.10 K/mcL LAB HEMETOLOGY METHOD 11/04/2024 5:23 AM [facility] Neutrophils Relative 61.2 % LAB HEMETOLOGY METHOD 11/04/2024 5:23 AM [facility] Lymphocytes Relative 30.7 % LAB HEMETOLOGY METHOD 11/04/2024 5:23 AM [facility] Monocytes Relative 5.8 % LAB HEMETOLOGY METHOD 11/04/2024 5:23 AM [facility] Eosinophils Relative 1.2 % LAB HEMETOLOGY METHOD 11/04/2024 5:23 AM [facility] Basophils Relative 0.6 % LAB HEMETOLOGY METHOD 11/04/2024 5:23 AM [facility] Immature Granulocytes Relative 0.5 % LAB HEMETOLOGY METHOD 11/04/2024 5:23 AM [facility] Neutrophils Absolute 6.48 1.50 - 7.00 K/mcL LAB HEMETOLOGY METHOD 11/04/2024 5:23 AM EDT [facility] Lymphocytes Absolute 3.25 1.00 - 5.00 K/mcL LAB HEMETOLOGY METHOD 11/04/2024 5:23 AM EDT [facility] Monocytes Absolute 0.61 0.20 - 1.00 K/mcL LAB HEMETOLOGY METHOD 11/04/2024 5:23 AM EDT [facility] Eosinophils Absolute 0.13 0.00 - 0.50 K/[facility] LAB HEMETOLOGY METHOD 11/04/2024 5:23 AM EDT [facility] Basophils Absolute 0.06 0.00 - 0.20 K/[facility] LAB HEMETOLOGY METHOD 11/04/2024 5:23 AM EDT [facility] Immature Granulocytes Absolute 0.05(H) 0.00 - 0.03 K/mcL LAB HEMETOLOGY METHOD 11/04/2024 5:23 AM EDT [facility] Blood Venous blood specimen / Unknown Venipuncture / Unknown 11/04/2024 5:13 AM EDT 11/04/2024 5:19 AM EDT Russ Weiss MD LAB BLOOD ORDERABLES Final Result Performing Organization Address [facility]/ZIP Co de Phone Number [facility] [address] [place] [address], * Blood culture (11/04/2024 5:13 AM EDT) Culture, Blood No growth at 5 days 11/09/2024 6:01 AM EDT [facility] Blood Venous blood specimen / Unknown Venipuncture / Unknown 11/04/2024 5:13 AM EDT 11/04/2024 5:19 AM EDT Russ Weiss MD LAB MICROBIOLOGY - GENERAL ORDERABLES Final Result [facility] [address] [place] [address], [place] [phone] * Magnesium (11/04/2024 5:13 AM EDT) Pathologist [facility] Magnesium 2.2 1.9 - 2.6 mg/dL LAB CHEMISTRY METHOD 11/04/2024 6:01 AM EDT [facility] Blood Venous blood specimen / Unknown Venipuncture / Unknown 11/04/2024 5:13 AM EDT 11/04/2024 5:19 AM EDT Russ Weiss MD LAB BLOOD ORDERABLES Final Result Performing Organization Address [facility]/ZIP Co de Phone Number [facility] [address] [place] [address], [place] [phone] * (ABNORMAL) Comprehensive metabolic panel (11/04/2024 5:13 AM EDT) [facility] Sodium 138 133 - 145 mmol/L LAB CHEMISTRY METHOD 11/04/2024 6:01 AM [facility] Potassium 4.2 3.5 - 5.5 mmol/L LAB CHEMISTRY METHOD 11/04/2024 6:01 AM [facility] Chloride 101 96 - 110 mmol/L LAB CHEMISTRY METHOD 11/04/2024 6:01 AM [facility] CO2 31 21 - 32 mmol/L LAB CHEMISTRY METHOD 11/04/2024 6:01 AM [facility] Anion Gap 6 3 - 11 LAB CHEMISTRY METHOD 11/04/2024 6:01 AM [facility] Glucose 99 70 - 100 mg/dL LAB CHEMISTRY METHOD 11/04/2024 6:01 AM [facility] BUN 15 5 - 25 mg/dL LAB CHEMISTRY METHOD 11/04/2024 6:01 AM [facility] Creatinine 0.53 0.50 - 1.10 mg/dL LAB CHEMISTRY METHOD 11/04/2024 6:01 AM [facility] eGFR 125 >=60 mL/min/1. 73m2 LAB CHEMISTRY METHOD 11/04/2024 6:01 AM [facility] Comment:Calculation based on the Chronic Kidney Disease Epidemiology Collaboration (CKD-EPI) equation refit without adjustment for race. BUN/Creatinine Ratio 28.3 LAB CHEMISTRY METHOD 11/04/2024 6:01 AM [facility] Calcium 9.3 8.5 - 10.5 mg/dL LAB CHEMISTRY METHOD 11/04/2024 6:01 AM [facility] AST (SGOT) 56(H) 10 - 42 unit/L LAB CHEMISTRY METHOD 11/04/2024 6:01 AM [facility] ALT (SGPT) 93(H) 10 - 60 unit/L LAB CHEMISTRY METHOD 11/04/2024 6:01 AM [facility] Alkaline Phosphatase 188(H) 42 - 121 unit/L LAB CHEMISTRY METHOD 11/04/2024 6:01 AM [facility] Total Protein 8.0 6.0 - 8.0 g/dL LAB CHEMISTRY METHOD 11/04/2024 6:01 AM [facility] Albumin 3.4 3.2 - 5.0 g/dL LAB CHEMISTRY METHOD 11/04/2024 6:01 AM [facility] Total Bilirubin 0.4 0.0 - 1.4 mg/dL LAB CHEMISTRY METHOD 11/04/2024 6:01 AM [facility] Blood Venous blood specimen / Unknown Venipuncture / Unknown 11/04/2024 5:13 AM EDT 11/04/2024 5:19 AM EDT us Russ Weiss MD LAB BLOOD ORDERABLES Final Result [facility] [address] [place] [address], [place] [phone] from Last 3 Months Insurance MEDICARE MEDICAID - [place] [facility] PL[facility] Advance Directives Documents on File Type Date Recorded Patient Pug Machine Operator Expl anation Health Care Decision (hx) 09/24/2021 AD GROSS DIRECTIVE Health Care Decision (hx) 09/24/2021 AD GROSS DIRECTIVE Health Care Decision (hx) 09/24/2021 AD GROSS DIRECTIVE Care Teams Feeder Operator Relationship Specialty Start Date End Date Physician, Pcp Unknown PCP - General 11/04/24
--- OUTSIDE RECORDS SUMMARY | 2024-12-31 12:28 | XMS_ITS | Clinical Summary ---
Author Organization [employer] Address [address] [place] [address] [address] [place] [address] Care Team Providers Care Dump Attendant Name Role Phone Unavailable Primary Care Provider [...] 2020 HPV/Cotest 2020 COVID-19 Vaccine (3 - 2024-2 6 season) [...] patient's age to complete this topic Insurance [facility] STANDARD MEDICARE
--- OUTSIDE RECORDS SUMMARY | 2024-12-31 12:28 | XMS_ITS | Clinical Summary ---
Author Organization [facility] Facility Address [address] [place] [address] Care Team Providers Care Surveillance Inspector Name Role Phone Unavailable Primary Care Provider [...]
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
[2024-12-31 14:00] LABS: MANUAL DIFF FLAG NO
[2024-12-31 14:01] LABS: Hematocrit 41.3 % (37.0-47.0); Hemoglobin 13.9 g/dl (12.0-16.0); Imm Gran Abs Auto 0.02 X10*3/uL (0.00-0.03); Imm Gran Pct Auto 0.2 % (0.0-0.4); Lymphocytes Absolute Auto 2.3 X10*3/uL (1.2-4.9); Mean Corpuscular HGB Conc 33.7 g/dl (31.0-35.0); Mean Corpuscular Hemoglobin 29.3 pg (27.0-33.0); Mean Corpuscular Volume 87.1 fL (80.0-98.0); NRBC Abs Auto 0.000 X10*3/uL (0.0-0.012); NRBC Pct Auto 0.0 /100WBC (0.0-0.2); Platelet Count 310 X10*3/uL (160-400); Red Blood Count 4.74 X10*6/uL (4.20-5.50); White Blood Count 9.1 X10*3/uL (4.8-10.8)
[2024-12-31 14:21] LABS: Alanine Aminotransferase 33 U/L (0-31); Albumin Level 4.0 g/dL (3.5-5.0); Alkaline Phosphatase 51 U/L (39-117); Anion Gap 13 (12-20); Aspartate Amino Transferase 35 U/L (5-31); Blood Urea Nitrogen 19 mg/dL (9-16); Calcium 9.0 mg/dL (8.4-10.2); Carbon Dioxide 30 mmol/L (22-29); Chloride 104 mmol/L (96-108); Creatinine Clr Calc Pharmacy 103.1; Estimated Glomerular Filt Rate > 60; Potassium 3.9 mmol/L (3.3-5.1); Sodium 143 mmol/L (135-145); Total Protein 7.1 g/dL (6.5-8.0)
[2024-12-31] MEDS: Erythromycin Base 0.5% Oph Oin 1 GM TUBE 1 CM EYE-RIGHT (14:29)
[2024-12-31 15:25] VITALS: BP 117/57; PULSE 85; RESP 16; TEMP -17.7; TEMP 0; O2SAT 100
[2024-12-31] MEDS: Naloxone HCl Nasal TAKE HOME 4 MG SPRAY 8 MG NOSTRILALT (15:29)
== END 2024-12-31 15:33 | disposition home or self-care (01) ==
PROVIDERS: Physician Assistant; Emergency Provider Student in an Organized Health Care Education/Training Program
DX: H57.11 Ocular pain, right eye (principal); L03.211 Cellulitis of face; F19.10 Other psychoactive substance abuse, uncomplicated; I07.9 Rheumatic tricuspid valve disease, unspecified
CPT/HCPCS: 36415; 71046; 80053; 83605; 85025; 85652; 86140; 87040; 96361; 96374; 99284; J0696

== ENCOUNTER → 2024-12-31 14:20 | Outpatient (BNV) | payer OTHER, SELFPAY | PROVIDERS: Emergency Provider Student in an Organized Health Care Education/Training Program; Visit Provider Radiology Diagnostic Radiology | DX: A41.9 Sepsis, unspecified organism (principal) | CPT/HCPCS: 71046 ==